=== PATIENT | male | born 1940 | race Hispanic/Latino ===

== ENCOUNTER 2017-02-18 11:22 | Emergency (ER) | payer MEDICARE ==
--- NOTE | 2017-02-18 12:10 | XRay Report ---
AP CHEST: HISTORY: chest pain No comparison. Previous CABG changes are noted. AP view of the chest demonstrates a normal mediastinal and cardiac contour with clear lungs and normal bony and soft tissue structures. IMPRESSION: No acute cardiopulmonary process.
[2017-02-18 12:31] LABS: Basophils % (Auto) 0.9 % (0.0-1.8); Eosinophils % (Auto) 0.8 % (0.0-4.3); Hematocrit 42.6 % (35.5-45.6); Hemoglobin 14.4 gm/dl (11.8-15.2); Mean Corpuscular HGB Conc 34 % (32-34); Mean Corpuscular Hemoglobin 31 pg (28-32); Mean Corpuscular Volume 92 fl (84-94); Platelet Count 185 K/mm3 (140-440); Red Blood Count 4.66 M/mm3 (3.65-5.03); Red Cell Distribution Width 13.3 % (13.2-15.2); White Blood Count 6.3 K/mm3 (4.5-11.0)
[2017-02-18 12:47] LABS: Bilirubin,Urine NEG (Negative)
[2017-02-18 12:48] LABS: Blood,Urine NEG (Negative); Ketones,Urine NEG (Negative); Leukocyte Esterase,Urine NEG (Negative); Nitrite,Urine NEG (Negative); Protein,Urine <15 mg/dL mg/dL (Negative); Urobilinogen,Urine < 2.0 mg/dL (<2.0)
[2017-02-18] MEDS ORDERED: APRESOLINE IV ONE (12:51)
[2017-02-18] MEDS ORDERED: NITROSTAT SL PRN (12:51)
--- NOTE | 2017-02-18 12:52 | Emergency Department Report ---
ED General Adult HPI - General Chief complaint: Chest Pain Stated complaint: NAUSEA Time Seen by Provider: 02/18/17 12:40 Source: patient, EMS (ems notes not available at time of chart dictation), RN notes reviewed Mode of arrival: Stretcher Limitations: No Limitations - History of Present Illness Initial comments: This is a 76-year-old male. He is previously unknown to me. Primary care Dr.: Dr. Diaz [employer] Supervisor: Dr. Hedrick Past medical history: Hypertension, GERD, heart disease, status post bypass ( bypass in 2014, does not recall recent stress test or cardiac catheterization since bypass ) she was brought to the hospital by EMS complaining of burning chest pain. The chest pain is epigastric, subxiphoid. It does not radiate to the back, arms or neck. There is mild nausea and vomiting, there is no hematemesis, there is no bright red blood per rectum. There is no posterior leg pain. There is no posterior leg swelling. Patient does complain incidentally burning pain in the feet. Patient reports that his pain improves when he lays in a particular position. He reports compliance with his antiplatelet medications. -: Gradual Location: chest Quality: aching Consistency: intermittent Improves with: rest, other (position) Worsens with: other (position) Associated Symptoms: chest pain, nausea/vomiting - Related Data Home Medications Medication Instructions Recorded Confirmed Last Taken Aspirin [Adult Low Dose Aspirin EC] 81 mg PO DAILY 02/18/17 02/18/17 02/17/17 Clopidogrel Bisulfate [Plavix] 75 mg PO DAILY 02/18/17 02/18/17 02/17/17 Famotidine [Pepcid] 20 mg PO QHS 02/18/17 02/18/17 02/17/17 Fenofibrate [Lofibra] 160 mg PO QDAY 02/18/17 02/18/17 02/17/17 Ibuprofen [Motrin] 800 mg PO Q8HR PRN 02/18/17 02/18/17 Unknown Metoclopramide HCl [Reglan TAB] 5 mg PO DAILY 02/18/17 02/18/17 02/17/17 Ondansetron [Zofran TAB] 8 mg PO Q8HR PRN 02/18/17 02/18/17 02/17/17 Pantoprazole [Protonix] 40 mg PO QDAY 02/18/17 02/18/17 02/17/17 Promethazine [Phenergan TAB] 12.5 mg PO QHS 02/18/17 02/18/17 02/17/17 Valsartan [Diovan] 160 mg PO QDAY 02/18/17 02/18/17 02/17/17 amLODIPine [Norvasc] 5 mg PO DAILY 02/18/17 02/18/17 02/18/17 clonazePAM [ Klonopin] 0.5 mg PO BID PRN 02/18/17 02/18/17 02/17/17 traMADol [Ultram 50 MG tab] 50 mg PO TID PRN 02/18/17 02/18/17 Unknown Allergies Allergy/AdvReac Type Severity Reaction Status Date / Time No Known Allergies Allergy Unverified 02/18/17 11:44 ED Review of Systems ROS: Stated complaint: NAUSEA Other details as noted in HPI ED Past Medical Hx - Past Medical History Previous Medical History?: Yes Hx Hypertension: Yes Hx Heart Attack/AMI: Yes Hx GERD: Yes - Surgical History Past Surgical History?: Yes Hx Open Heart Surgery: Yes (quadriple bypass 2014) - Social History Smoking Status: Never Smoker Substance Use Type: None - Medications Home Medications: Home Medications Medication Instructions Recorded Confirmed Last Taken Type Aspirin [Adult Low Dose Aspirin EC] 81 mg PO DAILY 02/18/17 02/18/17 02/17/17 History Clopidogrel Bisulfate [Plavix] 75 mg PO DAILY 02/18/17 02/18/17 02/17/17 History Famotidine [Pepcid] 20 mg PO QHS 02/18/17 02/18/17 02/17/17 History Fenofibrate [Lofibra] 160 mg PO QDAY 02/18/17 02/18/17 02/17/17 History Ibuprofen [Motrin] 800 mg PO Q8HR PRN 02/18/17 02/18/17 Unknown History Metoclopramide HCl [Reglan TAB] 5 mg PO DAILY 02/18/17 02/18/17 02/17/17 History Ondansetron [Zofran TAB] 8 mg PO Q8HR PRN 02/18/17 02/18/17 02/17/17 History Pantoprazole [Protonix] 40 mg PO QDAY 02/18/17 02/18/17 02/17/17 History Promethazine [Phenergan TAB] 12.5 mg PO QHS 02/18/17 02/18/17 02/17/17 History Valsartan [Diovan] 160 mg PO QDAY 02/18/17 02/18/17 02/17/17 History amLODIPine [Norvasc] 5 mg PO DAILY 02/18/17 02/18/17 02/18/17 History clonazePAM [ Klonopin] 0.5 mg PO BID PRN 02/18/17 02/18/17 02/17/17 History traMADol [Ultram 50 MG tab] 50 mg PO TID PRN 02/18/17 02/18/17 Unknown History ED Physical Exam - General Limitations: No Limitations General appearance: alert, in no apparent distress - Head Head exam: Present: atraumatic, normocephalic - Eye Eye exam: Present: normal appearance, EOMI. Absent: nystagmus - ENT ENT exam: Present: normal exam, normal orophraynx, mucous membranes moist, normal external ear exam - Neck Neck exam: Present: normal inspection, full ROM. Absent: tenderness, meningismus - Respiratory Respiratory exam: Present: normal lung sounds bilaterally. Absent: respiratory distress, wheezes, rales, rhonchi, stridor, chest wall tenderness, accessory muscle use, decreased breath sounds, prolonged expiratory - Cardiovascular Cardiovascular Exam: Present: regular rate, normal rhythm, normal heart sounds. Absent: bradycardia, tachycardia, irregular rhythm, systolic murmur, diastolic murmur, rubs, gallop - GI/Abdominal GI/Abdominal exam: Present: soft, normal bowel sounds. Absent: distended, tenderness, guarding, rebound, rigid, pulsatile mass - Rectal Rectal exam: Present: deferred - Extremities Exam Extremities exam: Present: normal inspection, full ROM, normal capillary refill. Absent: tenderness, pedal edema, joint swelling, calf tenderness - Back Exam Back exam: Present: normal inspection, full ROM. Absent: tenderness, CVA tenderness (R), CVA tenderness (L), muscle spasm, paraspinal tenderness, vertebral tenderness - Neurological Exam Neurological exam: Present: alert, oriented X3, other (Extraocular movements intact. Tongue midline. No facial droop. Facial sensation intact to light touch in the V1, V2, V3 distribution bilaterally. 5 and 5 strength in 4 extremities.. Sensation is intact to light touch in 4 extremities.). Absent: motor sensory deficit - Psychiatric Psychiatric exam: Present: normal affect, normal mood - Skin Skin exam: Present: warm, dry, intact, normal color. Absent: rash ED Course Vital Signs 02/18/17 02/18/17 02/18/17 11:35 13:23 13:35 Temperature 98.7 F Pulse Rate 69 59 L 69 Respiratory 14 16 15 Rate Blood Pressure 196/63 Blood Pressure 196/63 190/85 157/76 [Left] O2 Sat by Pulse 100 100 100 Oximetry - Reevaluation(s) Reevaluation #1: 02/18/17 12:59 Differential diagnosis: Hypertensive urgency, GERD, reflux, acute coronary syndrome, pneumonia Assessment and plan: 76-year-old male with extensive cardiac history, with concerning chest pain. He is afebrile with hypertension. I think aortic disease is very unlikely, a chest x-ray demonstrates unremarkable mediastinum, the patient has equal pulses in 4 extremities. He will be treated symptomatically. I will discuss with his private land resource specialist to determine further management. 02/18/17 14:07 Reevaluation #2: 02/18/17 13:00 No pulmonary embolus or DVT risk factors, low risk by well's criteria, saturating well, no respiratory complaint at this time. Reevaluation #3: 02/18/17 14:07 Additional history is obtained from family and from the nurse practitioner, Ms. Nelsy Arango. As per family's verbal report to me, the patient has been quite anxious and upset ever since his . They report that he chronically wakes up in the morning with nonspecific discomfort, anxiety, chest burning and stomach burning. The symptoms have been going on for weeks to months. Family has a strong suspicion for anxiety. in addition, the patient has been seen and evaluated by cardiology independently, indicated the patient had a negative stress test 2015, and the cardiology team indicates that from their perspective they did not feel the patient requires admission for acute coronary syndrome or stratification. This case was specifically discussed with land resource specialist, Dr. Hedrikc. In addition, the patient was supposed to follow-up with a land resource specialist today, and did not follow-up. Cardiology wants patient to follow-up next week. Given that patient has been having symptoms for weeks to months, has had multiple negative troponins, has reliable family, there appears to be an emotive component, and that his EKGs are unremarkable/unchanged 2 I think it would be reasonable to discharge this patient. Reevaluation #4: 02/18/17 15:32 Patient has been observed in the ER for a prolonged period of time. His vital signs are improved. His anxiety is improved. Troponins negative 2. He is closely arranged outpatient cardiology follow-up. He will be discharged. Family in agreement with plan. - Consultations Consultation #1: 02/18/17 13:18 This is discussed with cardiology nurse practitioner, Kevin arango, who will follow as a consult ED Medical Decision Making - Lab Data Result diagrams: 02/18/17 12:20 02/18/17 12:20 Vital Signs 02/18/17 11:35 Temperature 98.7 F Pulse Rate 69 Respiratory 14 Rate Blood Pressure 196/63 Blood Pressure 196/63 [Left] O2 Sat by Pulse 100 Oximetry Lab Results 02/18/17 02/18/17 Range/Units 12:05 12:20 WBC 6.3 (4.5-11.0) K/mm3 RBC 4.66 (3.65-5.03) M/mm3 Hgb 14.4 (11.8-15.2) gm/dl Hct 42.6 (35.5-45.6) % MCV 92 (84-94) fl MCH 31 (28-32) pg MCHC 34 (32-34) % RDW 13.3 (13.2-15.2) % Plt Count 185 (140-440) K/mm3 Lymph % (Auto) 17.6 (13.4-35.0) % [place] % (Auto) 7.3 (0.0-7.3) % Eos % (Auto) 0.8 (0.0-4.3) % Baso % (Auto) 0.9 (0.0-1.8) % Lymph # 1.1 L (1.2-5.4) K/mm3 [place] # 0.5 (0.0-0.8) K/mm3 Eos # 0.1 (0.0-0.4) K/mm3 Baso # 0.1 (0.0-0.1) K/mm3 Seg Neutrophils % 73.4 H (40.0-70.0) % Seg Neutrophils # 4.6 (1.8-7.7) K/mm3 Urine Bilirubin Neg (Negative) Urine RBC (Auto) 3.0 (0.0-6.0) /HPF - EKG Data When compared to previous EKG there are: previous EKG unavailable 02/18/17 12:58 EKG demonstrates normal sinus, 70 beats per minute, normal axis, normal intervals, nonspecific ST abnormality, not morphologically consistent with STEMI. EKG #2: Normal sinus, 83 bpm, left ventricular hypertrophy, morphologically consistent with STEMI, unchanged from prior EKG. 02/18/17 14:10 - Radiology Data Radiology results: report reviewed, image reviewed interpreted by me: X-ray the chest was negative for acute disease, patient is status post median sternotomy Critical care attestation.: If time is entered above; I have spent that time in minutes in the direct care of this critically ill patient, excluding procedure time. ED Disposition Clinical Impression: Epigastric burning sensation Disposition: DISCHARGED TO HOME OR SELFCARE Is pt being admited?: No Does the pt Need Aspirin: No Condition: Stable Instructions: Chest Pain (ED) Additional Instructions: Continue current outpatient medications. Follow-up with your land resource specialist,february, at 145, and the following office and location: [place] [address] Hours: Wednesday 8:30AM 5:00PM Return to the ER right away with new pain, worsened pain, migration of pain, fevers or chills, intractable nausea or vomiting, inability to tolerate liquid feeds. Referrals: PRIMARY CARE, [Primary Care Provider] - 3-5 Days JULIO CESAR HEDRICK MD [Staff Physician] - 3-5 Days
[2017-02-18] MEDS ORDERED: PEPCID IV ONE (13:00)
[2017-02-18] MEDS ORDERED: ALUM-MAG HYDROX-SIMETH 200-200-20MG/5ML PO ONE (13:00)
[2017-02-18] MEDS ORDERED: BABY ASPIRIN PO ONE (13:01)
--- NOTE | 2017-02-18 13:08 | Admit Criteria Form ---
Admission Criteria Documentation: HYPERTENSION Clinical Indications for Admission to Inpatient Care ( Place "X" for any and all applicable criteria): Admission is indicated for ANY ONE of the following(1)(2)(3)(4): [ ]I. Hypertensive emergency, with evidence of acute and progressing target organ disease as indicated by ANY ONE of the following: [ ]a) Hypertensive encephalopathy (eg, confusion, altered mental status) [ ]b) Cerebral infarction [ ]c) Intracranial hemorrhage [ ]d) Myocardial ischemia or infarction [ ]e) Pulmonary edema [ ]f) Aortic dissection [ ]g) Seizure [ ]h) Acute renal insufficiency [ ]i) Papilledema [ ]j) Microangiopathic hemolytic anemia [ ]II. Adrenergic crisis (eg, severe hypertension due to pheochromocytoma crisis, cocaine or amphetamine intoxication, or clonidine withdrawal) [ ]III. Severe hypertension (SBP greater than 180 mmHg or DBP greater than 110 mmHg or greater than the 95th percentile for age, gender, and height in pediatric patients) that cannot be controlled (eg, to SBP less than 160 mmHg and DBP less than 100 mmHg in adults) by treatment with oral medication in emergency department or observation care Extended stay beyond goal length of stay may be needed for(11)(12)(13): [ ]a) Persistent hypertensive encephalopathy [ ]b) Continuation of pulmonary edema [ ]c) Recurring or persistent severe hypertension [ ]d) Target organ damage (eg, angina, stroke, aortic dissection) [ ]e) Associated renal insufficiency The original [facility] content created by [employer] has been revised. The portions of the content which have been revised are identified through the use of italic text or in bold, and [facility] has neither reviewed nor approved the modified material. All other unmodified content is copyright [facility]. Please see references footnoted in the original [facility] edition 2016
[2017-02-18 13:20] LABS: INR 0.98 (0.87-1.13)
[2017-02-18 13:28] LABS: Creatine Kinase MB 3.2 ng/mL (0.0-4.0)
[2017-02-18 13:30] LABS: Alanine Aminotransferase 16 units/L (7-56); Albumin 4.5 g/dL (3.9-5); Alkaline Phosphatase 43 units/L (35-129); Anion Gap 22 mmol/L; Bilirubin,Total 0.6 mg/dL (0.1-1.2); Blood Urea Nitrogen 28 mg/dL (9-20); Calcium 9.5 mg/dL (8.4-10.2); Carbon Dioxide 21 mmol/L (22-30); Chloride 100.7 mmol/L (98-107); Creatine Kinase 72 units/L (55-170); Glucose 97 mg/dL (75-100); Potassium 4.4 mmol/L (3.6-5.0); Sodium 139 mmol/L (137-145); Total Protein 6.8 g/dL (6.3-8.2)
--- NOTE | 2017-02-18 13:35 | Consultation ---
History of Present Illness Consult date: 02/18/17 Requesting physician: MIRIAM CHRISTIANSON Consult reason: chest pain History of present illness: The patient is a 76YO male with a past medical history significant for CAD, s/p CABG (05/2014), HTN, HLP, cervical arthritis, lumbar disc disease, GERD, and anxiety. He is followed in our office by Dr. Ocasio. He presented with c/o substernal and epigastric pain x several days [employer]. Pt also reports BLE weakness and tingling (chronic), chronic nausea, intermittent substernal and epigastric burning, and intermittent SOB (particularly first thing in the AM when waking up ). He reports his epigastric and substernal discomfort as an intermittent, nonexertional, nonradiating burning pain that was a little worse that his baseline yesterday. He denies any palpitations, vomiting, diaphoresis, dizziness , or syncope. He reports that his two years ago and since her , he has been experiencing anxiety and depression and has generally not felt well. Pt is very tearful on examination. He was scheduled to be seen in our office today. Echo 03/2016 showed EF 40 - 45%, impaired relaxation, moderate MR. [employer] MPI stress test 04/2016 was negative for ischemia, normal LV systolic performance. Past History Past Medical History: CAD, hypertension, hyperlipidemia Past Surgical History: CABG Social history: denies: smoking, alcohol abuse, prescription drug abuse Medications and Allergies Allergies Allergy/AdvReac Type Severity Reaction Status Date / Time No Known Allergies Allergy Unverified 02/18/17 11:44 Home Medications Medication Instructions Recorded Confirmed Last Taken Type Aspirin [Adult Low Dose Aspirin EC] 81 mg PO DAILY 02/18/17 02/18/17 02/17/17 History Clopidogrel Bisulfate [Plavix] 75 mg PO DAILY 02/18/17 02/18/17 02/17/17 History Famotidine [Pepcid] 20 mg PO QHS 02/18/17 02/18/17 02/17/17 History Fenofibrate [Lofibra] 160 mg PO QDAY 02/18/17 02/18/17 02/17/17 History Ibuprofen [Motrin] 800 mg PO Q8HR PRN 02/18/17 02/18/17 Unknown History Metoclopramide HCl [Reglan TAB] 5 mg PO DAILY 02/18/17 02/18/17 02/17/17 History Ondansetron [Zofran TAB] 8 mg PO Q8HR PRN 02/18/17 02/18/17 02/17/17 History Pantoprazole [Protonix] 40 mg PO QDAY 02/18/17 02/18/17 02/17/17 History Promethazine [Phenergan TAB] 12.5 mg PO QHS 02/18/17 02/18/17 02/17/17 History Valsartan [Diovan] 160 mg PO QDAY 02/18/17 02/18/17 02/17/17 History amLODIPine [Norvasc] 5 mg PO DAILY 02/18/17 02/18/17 02/18/17 History clonazePAM [ Klonopin] 0.5 mg PO BID PRN 02/18/17 02/18/17 02/17/17 History traMADol [Ultram 50 MG tab] 50 mg PO TID PRN 02/18/17 02/18/17 Unknown History Active Meds: Active Medications Nitroglycerin (Nitrostat) 0.4 mg SL .Q5MIN PRN PRN Reason: Chest Pain Review of Systems Constitutional: no weight loss, no weight gain, no fever, no chills, no sweats Ears, nose, mouth and throat: no ear pain, no nose pain, no sinus pressure, no sinus pain Cardiovascular: chest pain, shortness of breath, no orthopnea, no palpitations, no rapid/irregular heart beat, no edema, no syncope, no lightheadedness, no dyspnea on exertion, no leg edema Respiratory: shortness of breath, no cough, no dyspnea on exertion, no congestion, no wheezing, no pain Gastrointestinal: nausea, no vomiting, no diarrhea, no constipation, no change in bowel habits Genitourinary Male: no dysuria, no hematuria, no flank pain, no discharge, no urinary frequency, no urinary hesitancy Musculoskeletal: leg numbness/tingling, no neck stiffness, no neck pain, no shooting arm pain, no arm numbness/tingling, no low back pain, no shooting leg pain, no redness of joints Integumentary: no rash, no pruritis, no redness, no sores, no wounds Neurological: no head injury, no paralysis, no seizures, no syncope, no tremors , no lack of coordination Psychiatric: anxiety, depression, hopelessness Endocrine: no cold intolerance, no heat intolerance Hematologic/Lymphatic: no easy bruising, no easy bleeding, no lymphadenopathy Allergic/Immunologic: no urticaria, no wheezing, no persistent infections Physical Examination Last Vital Signs Temp 98.7 F 02/18/17 11:35 Pulse 69 02/18/17 13:35 Resp 15 02/18/17 13:35 BP 157/76 02/18/17 13:35 Pulse Ox 100 02/18/17 13:35 General appearance: no acute distress HEENT: Positive: PERRL, Normocephaly, Mucus Membranes Moist Neck: Positive: neck supple, trachea midline Cardiac: Positive: Reg Rate and Rhythm, S1/S2, Systolic Murmur Lungs: Positive: Normal Exam, clear to auscultation, Normal Breath Sounds, No Wheeze, Rales, Rhonchi Neuro: Positive: Grossly Intact, Cranial Nerve 2-12 Intact Abdomen: Positive: Unremarkable, Soft, Active Bowel Sounds. Negative: Tender Skin: Positive: Clear. Negative: Rash, Wound Musculoskeletal: No Fluid Collection, No Pain, Normal Range of Motion Extremities: Present: normal, upper extr. pulses, lower extr. pulses. Absent: edema Results 02/18/17 12:20 02/18/17 12:20 Cardiac Enzymes 02/18/17 Range/Units 12:20 AST 18 (5-40) units/L CK-MB (CK-2) 3.2 (0.0-4.0) ng/mL Coagulation 02/18/17 Range/Units 13:06 PT 12.9 (12.2-14.9) Sec. INR 0.98 (0.87-1.13) CBC 02/18/17 Range/Units 12:20 WBC 6.3 (4.5-11.0) K/mm3 RBC 4.66 (3.65-5.03) M/mm3 Hgb 14.4 (11.8-15.2) gm/dl Hct 42.6 (35.5-45.6) % Plt Count 185 (140-440) K/mm3 Lymph # 1.1 L (1.2-5.4) K/mm3 Clinch # 0.5 (0.0-0.8) K/mm3 Eos # 0.1 (0.0-0.4) K/mm3 Baso # 0.1 (0.0-0.1) K/mm3 Comprehensive Metabolic Panel 02/18/17 Range/Units 12:20 Sodium 139 (137-145) mmol/L Potassium 4.4 (3.6-5.0) mmol/L Chloride 100.7 (98-107) mmol/L Carbon Dioxide 21 L (22-30) mmol/L BUN 28 H (9-20) mg/dL Creatinine 1.6 H (0.8-1.5) mg/dL Glucose 97 (75-100) mg/dL Calcium 9.5 (8.4-10.2) mg/dL AST 18 (5-40) units/L ALT 16 (7-56) units/L Alkaline Phosphatase 43 (35-129) units/L Total Protein 6.8 (6.3-8.2) g/dL Albumin 4.5 (3.9-5) g/dL - Imaging and Cardiology Echo: report reviewed Cardiac cath: report reviewed EKG: report reviewed, image reviewed EKG interpretations - Telemetry EKG Rhythm: Sinus Rhythm - EKG Sinus rhythms and dysrhythmias: sinus rhythm Repolarization changes or abnormalities: nonspecific abnormality, ST segment, and/or T wave Assessment and Plan Assessment: Chest pain, atypical / epigastric pain - ECG with NAF, Marciano negative for AMI HTN HLP CAD, s/p CABG GERD BLE weakness and tingling / cervical arthritis / lumbar disc disease Anxiety / depression Plan: Currently stable cardiac status. ACS ruled out. Discomfort does not appear to be cardiac in etiology. Pt may discharge home from cardiology standpoint. No new cardiology recommendations at this time. Follow up in our [place] office with Dr. Haque on 02/26/2017 @ 1:45PM. Assessment and plan reviewed with pt, pt's son, and [id number] at bedside. The patient has been seen in conjunction with Dr. Ocasio who agrees with the assessment and plan of care.
[2017-02-18 16:01] VITALS: BP 130/78
== END 2017-02-18 16:01 | disposition home or self-care (01) ==
LOC: ED 11:22
DX: R20.8 Other disturbances of skin sensation (principal); R07.89 Other chest pain; R11.2 Nausea with vomiting, unspecified; I10 Essential (primary) hypertension; I25.2 Old myocardial infarction; K21.9 Gastro-esophageal reflux disease without esophagitis; Z79.82 Long term (current) use of aspirin
CPT/HCPCS: 36415; 71010; 80053; 81001; 82550; 82553; 84484; 85025; 85610; 93005; 93010; 96374; 96375; 99285; J0360

== ENCOUNTER 2017-09-30 08:15 | Inpatient (IN) | payer MEDICARE ==
[2017-09-30 09:29] LABS: Hematocrit 46.4 % (35.5-45.6); Hemoglobin 15.6 gm/dl (11.8-15.2); Mean Corpuscular HGB Conc 34 % (32-34); Mean Corpuscular Hemoglobin 31 pg (28-32); Mean Corpuscular Volume 93 fl (84-94); Red Blood Count 4.99 M/mm3 (3.65-5.03); Red Cell Distribution Width 13.3 % (13.2-15.2)
[2017-09-30 09:41] LABS: Anion Gap 20 mmol/L; BUN/Creatinine Ratio 17; Blood Urea Nitrogen 25 mg/dL (9-20); Calcium 9.5 mg/dL (8.4-10.2); Carbon Dioxide 21 mmol/L (22-30); Chloride 102.3 mmol/L (98-107); Glucose 105 mg/dL (75-100); INR 1.02 (0.87-1.13); Partial Thromboplastin Time 23.2 Sec. (24.2-36.6); Potassium 4.7 mmol/L (3.6-5.0); Sodium 139 mmol/L (137-145)
[2017-09-30 11:16] LABS: Basophils % (Manual) 0 % (0.0-1.8); Blastocytes % (Manual) 0 %
[2017-09-30 11:17] LABS: Diff Status Complete; RBC Morphology Normal
[2017-09-30 11:24] LABS: Platelet Count 168 K/mm3 (140-440)
--- NOTE | 2017-09-30 14:39 | XRay Report ---
CHEST 2 VIEWS INDICATION: Shortness of breath, difficulty breathing. COMPARISON: 02/18/2017 FINDINGS: PA and lateral chest radiographs again demonstrate normal cardiomediastinal silhouette, post CABG changes and clear lungs. Intact bones. CONCLUSION: No acute disease, stable. Thank you for the opportunity to participate in this patient's care.
[2017-09-30 17:41] LABS: Bilirubin,Urine NEG (Negative); Blood,Urine SM (Negative); Ketones,Urine NEG (Negative); Leukocyte Esterase,Urine NEG (Negative); Mucus,Urine FEW /HPF; Nitrite,Urine NEG (Negative); Protein,Urine <15 mg/dL mg/dL (Negative); RBC,Urine < 1.0 /HPF (0.0-6.0); Urobilinogen,Urine < 2.0 mg/dL (<2.0)
[2017-09-30] MEDS ORDERED: DIOVAN PO SCH (18:00)
[2017-09-30] MEDS: NORVASC PO SCH (18:27)
[2017-09-30] MEDS ORDERED: NITRO-BID 2% TP ONE (18:39)
[2017-09-30] MEDS ORDERED: ASPIRIN PO ONE (18:39)
[2017-09-30] MEDS ORDERED: ZOFRAN IV PRN ×2 (18:40→21:48)
[2017-09-30] MEDS ORDERED: MORPHINE IV PRN ×2 (18:40→21:48)
--- NOTE | 2017-09-30 18:45 | Emergency Department Report ---
HPI - General Chief Complaint: Chest Pain Time Seen by Provider: 09/30/17 17:32 - HPI HPI: Room 7 The patient is a 76-year-old male presenting with a chief complaint of chest discomfort. The patient states for the past 3 days she's had intermittent tightness in his chest associated with hot and cold flashes, diaphoresis and a dry throat. Patient does admit he has been "hard to breathe" with his chest tightness. Patient denies nausea/vomiting. Patient denies cough or fever. Patient complains of some throat discomfort when swallowing. The patient states he's had a stress test sometime in 2016 but his last cardiac catheterization occurred in 2013. Location: Chest, see above Duration: Intermittent 3 days Quality: Tightness Severity: Currently 0/10 Modifying factors: [see above] Context: [see above] Mode of transportation: [not driving] ED Past Medical Hx - Past Medical History Hx Hypertension: Yes Hx Heart Attack/AMI: Yes Hx GERD: Yes Additional medical history: Hypercholesterolemia - Surgical History Hx Open Heart Surgery: Yes (quadriple bypass 2014) - Family History Family history: no significant - Social History Smoking Status: Former Smoker (none 30 years) Substance Use Type: None - Medications Home Medications: Home Medications Medication Instructions Recorded Confirmed Last Taken Type Aspirin [Adult Low Dose Aspirin EC] 81 mg PO DAILY 02/18/17 09/30/17 09/29/17 History Clopidogrel Bisulfate [Plavix] 75 mg PO DAILY 02/18/17 09/30/17 09/29/17 History Famotidine [Pepcid] 20 mg PO QHS 02/18/17 09/30/17 09/29/17 History Fenofibrate [Lofibra] 160 mg PO QDAY 02/18/17 09/30/17 09/29/17 History Ibuprofen [Motrin] 800 mg PO Q8HR PRN 02/18/17 09/30/17 09/29/17 History Pantoprazole [Protonix] 40 mg PO QDAY 02/18/17 09/30/17 09/29/17 History Valsartan [Diovan] 160 mg PO QDAY 02/18/17 09/30/17 09/29/17 History amLODIPine [Norvasc] 5 mg PO DAILY 02/18/17 09/30/17 09/29/17 History clonazePAM [ Klonopin] 0.5 mg PO BID PRN 02/18/17 09/30/17 09/29/17 History Carbidopa/Levodopa 25-100 [Sinemet] 1 each PO BID 09/30/17 09/30/17 09/29/17 History Ergocalciferol [Vitamin D2] 1 cap PO QWEEK 09/30/17 09/30/17 09/29/17 History Finasteride [Proscar] 5 mg PO QDAY 09/30/17 09/30/17 09/29/17 History Memantine [Namenda] 5 mg PO BID 09/30/17 09/30/17 09/29/17 History Pravastatin Sodium [Pravachol] 20 mg PO DAILY 09/30/17 09/30/17 09/29/17 History Sertraline [Zoloft] 25 mg PO QDAY 09/30/17 09/30/17 09/29/17 History ED Review of Systems ROS: Stated complaint: ABNORMAL EKG, CHEST PAIN Other details as noted in HPI Constitutional: diaphoresis. denies: fever ENT: throat pain, other (dry throat) Respiratory: shortness of breath Cardiovascular: chest pain Gastrointestinal: denies: nausea, vomiting Physical Exam - Physical Exam Vital Signs: Vital Signs 09/30/17 09/30/17 09/30/17 08:34 10:43 10:47 Temperature 97.4 F L 97.2 F L 97.2 F L Pulse Rate 52 L 62 57 L Respiratory 20 14 18 Rate Blood Pressure 190/90 167/81 Blood Pressure [Left] Blood Pressure 161/81 [Right] O2 Sat by Pulse 99 100 100 Oximetry 09/30/17 09/30/17 09/30/17 14:46 15:43 18:27 Temperature 97.9 F 98 F Pulse Rate 55 L 61 Respiratory 13 Rate Blood Pressure 163/60 Blood Pressure 199/72 [Left] Blood Pressure [Right] O2 Sat by Pulse Oximetry Physical Exam: GENERAL: The patient is well-developed well-nourished male lying on stretcher not appearing to be in acute distress. [] HEENT: Normocephalic. Atraumatic. Extraocular motions are intact. Oropharynx clear NECK: Supple. Trachea midline CHEST/LUNGS: Clear to auscultation. There is no respiratory distress noted. HEART/CARDIOVASCULAR: Regular. There is no tachycardia. There is no gallop rub or murmur. ABDOMEN: Abdomen is soft, nontender. Patient has normal bowel sounds. There is no abdominal distention. SKIN: There is no rash. There is no diaphoresis. NEURO: The patient is awake, alert, and oriented. The patient is cooperative. The patient has normal speech MUSCULOSKELETAL: There is no evidence of acute injury. ED Course Vital Signs 09/30/17 09/30/17 09/30/17 08:34 10:43 10:47 Temperature 97.4 F L 97.2 F L 97.2 F L Pulse Rate 52 L 62 57 L Respiratory 20 14 18 Rate Blood Pressure 190/90 167/81 Blood Pressure [Left] Blood Pressure 161/81 [Right] O2 Sat by Pulse 99 100 100 Oximetry 09/30/17 09/30/17 09/30/17 14:46 15:43 18:27 Temperature 97.9 F 98 F Pulse Rate 55 L 61 Respiratory 13 Rate Blood Pressure 163/60 Blood Pressure 199/72 [Left] Blood Pressure [Right] O2 Sat by Pulse Oximetry ED Medical Decision Making - Lab Data Result diagrams: 09/30/17 08:56 09/30/17 08:56 Laboratory Tests 09/30/17 09/30/17 09/30/17 08:56 08:56 08:56 WBC 10.0 RBC 4.99 Hgb 15.6 H Hct 46.4 H MCV 93 MCH 31 MCHC 34 RDW 13.3 Plt Count 168 Add Manual Diff Complete Total Counted 100 Seg Neuts % (Manual) 81.0 H Band Neutrophils % 1.0 Lymphocytes % (Manual) 12.0 L Reactive Lymphs % (Man) 0 Monocytes % (Manual) 5.0 Eosinophils % (Manual) 1.0 Basophils % (Manual) 0 Metamyelocytes % 0 Myelocytes % 0 Promyelocytes % 0 Blast Cells % 0 Nucleated RBC % Not Reportable Seg Neutrophils # Man 0.0 L Band Neutrophils # 0.0 Lymphocytes # (Manual) 0.0 L Abs React Lymphs (Man) 0.0 Monocytes # (Manual) 0.0 Eosinophils # (Manual) 0.0 Basophils # (Manual) 0.0 Metamyelocytes # 0.0 Myelocytes # 0.0 Promyelocytes # 0.0 Blast Cells # 0.0 WBC Morphology Not Reportable Hypersegmented Neuts Not Reportable Hyposegmented Neuts Not Reportable Hypogranular Neuts Not Reportable Smudge Cells Not Reportable Toxic Granulation Not Reportable Toxic Vacuolation Not Reportable Dohle Bodies Not Reportable Pelger-Huet Anomaly Not Reportable Cristela Rods Not Reportable Platelet Estimate Not Reportable Clumped Platelets Not Reportable Plt Clumps, EDTA Not Reportable Large Platelets Not Reportable Giant Platelets Not Reportable Platelet Satelliting Not Reportable Plt Morphology Comment Not Reportable RBC Morphology Normal Dimorphic RBCs Not Reportable Polychromasia Not Reportable Hypochromasia Not Reportable Poikilocytosis Not Reportable Anisocytosis Not Reportable Microcytosis Not Reportable Macrocytosis Not Reportable Spherocytes Not Reportable Pappenheimer Bodies Not Reportable Sickle Cells Not Reportable Target Cells Not Reportable Tear Drop Cells Not Reportable Ovalocytes Not Reportable Helmet Cells Not Reportable Yao-[place] Bodies Not Reportable Peck Rings Not Reportable Jj Cells Not Reportable Bite Cells Not Reportable Crenated Cell Not Reportable Elliptocytes Not Reportable Acanthocytes (Spur) Not Reportable Rouleaux Not Reportable Hemoglobin C Crystals Not Reportable Schistocytes Not Reportable Malaria parasites Not Reportable Murali Bodies Not Reportable Hem Pathologist Commnt No PT 13.9 INR 1.02 APTT 23.2 L Sodium 139 Potassium 4.7 Chloride 102.3 Carbon Dioxide 21 L Anion Gap 20 BUN 25 H Creatinine 1.5 Estimated GFR 46 BUN/Creatinine Ratio 17 Glucose 105 H Lactic Acid Calcium 9.5 Troponin T < 0.010 Urine Color Urine Turbidity Urine pH Ur Specific [place] Urine Protein Urine Glucose (UA) Urine Ketones Urine Blood Urine Nitrite Urine Bilirubin Urine Urobilinogen Ur Leukocyte Esterase Urine WBC (Auto) Urine RBC (Auto) U Epithel Cells (Auto) Hyaline Casts Urine Mucus 09/30/17 09/30/17 09/30/17 11:48 14:40 15:26 WBC RBC Hgb Hct MCV MCH MCHC RDW Plt Count Add Manual Diff Total Counted Seg Neuts % (Manual) Band Neutrophils % Lymphocytes % (Manual) Reactive Lymphs % (Man) Monocytes % (Manual) Eosinophils % (Manual) Basophils % (Manual) Metamyelocytes % Myelocytes % Promyelocytes % Blast Cells % Nucleated RBC % Seg Neutrophils # Man Band Neutrophils # Lymphocytes # (Manual) Abs React Lymphs (Man) Monocytes # (Manual) Eosinophils # (Manual) Basophils # (Manual) Metamyelocytes # Myelocytes # Promyelocytes # Blast Cells # WBC Morphology Hypersegmented Neuts Hyposegmented Neuts Hypogranular Neuts Smudge Cells Toxic Granulation Toxic Vacuolation Dohle Bodies Pelger-Huet Anomaly Cristela Rods Platelet Estimate Clumped Platelets Plt Clumps, EDTA Large Platelets Giant Platelets Platelet Satelliting Plt Morphology Comment RBC Morphology Dimorphic RBCs Polychromasia Hypochromasia Poikilocytosis Anisocytosis Microcytosis Macrocytosis Spherocytes Pappenheimer Bodies Sickle Cells Target Cells Tear Drop Cells Ovalocytes Helmet Cells Yao-[place] Bodies Peck Rings Jj Cells Bite Cells Crenated Cell Elliptocytes Acanthocytes (Spur) Rouleaux Hemoglobin C Crystals Schistocytes Malaria parasites Murali Bodies Hem Pathologist Commnt PT INR APTT Sodium Potassium Chloride Carbon Dioxide Anion Gap BUN Creatinine Estimated GFR BUN/Creatinine Ratio Glucose Lactic Acid 1.50 Calcium Troponin T < 0.010 < 0.010 Urine Color Urine Turbidity Urine pH Ur Specific [place] Urine Protein Urine Glucose (UA) Urine Ketones Urine Blood Urine Nitrite Urine Bilirubin Urine Urobilinogen Ur Leukocyte Esterase Urine WBC (Auto) Urine RBC (Auto) U Epithel Cells (Auto) Hyaline Casts Urine Mucus 09/30/17 16:23 WBC RBC Hgb Hct MCV MCH MCHC RDW Plt Count Add Manual Diff Total Counted Seg Neuts % (Manual) Band Neutrophils % Lymphocytes % (Manual) Reactive Lymphs % (Man) Monocytes % (Manual) Eosinophils % (Manual) Basophils % (Manual) Metamyelocytes % Myelocytes % Promyelocytes % Blast Cells % Nucleated RBC % Seg Neutrophils # Man Band Neutrophils # Lymphocytes # (Manual) Abs React Lymphs (Man) Monocytes # (Manual) Eosinophils # (Manual) Basophils # (Manual) Metamyelocytes # Myelocytes # Promyelocytes # Blast Cells # WBC Morphology Hypersegmented Neuts Hyposegmented Neuts Hypogranular Neuts Smudge Cells Toxic Granulation Toxic Vacuolation Dohle Bodies Pelger-Huet Anomaly Cristela Rods Platelet Estimate Clumped Platelets Plt Clumps, EDTA Large Platelets Giant Platelets Platelet Satelliting Plt Morphology Comment RBC Morphology Dimorphic RBCs Polychromasia Hypochromasia Poikilocytosis Anisocytosis Microcytosis Macrocytosis Spherocytes Pappenheimer Bodies Sickle Cells Target Cells Tear Drop Cells Ovalocytes Helmet Cells Yao-[place] Bodies Peck Rings Jj Cells Bite Cells Crenated Cell Elliptocytes Acanthocytes (Spur) Rouleaux Hemoglobin C Crystals Schistocytes Malaria parasites Murali Bodies Hem Pathologist Commnt PT INR APTT Sodium Potassium Chloride Carbon Dioxide Anion Gap BUN Creatinine Estimated GFR BUN/Creatinine Ratio Glucose Lactic Acid Calcium Troponin T Urine Color Yellow Urine Turbidity Clear Urine pH 5.0 Ur Specific [place] 1.023 Urine Protein <15 mg/dl Urine Glucose (UA) Neg Urine Ketones Neg Urine Blood Sm Urine Nitrite Neg Urine Bilirubin Neg Urine Urobilinogen < 2.0 Ur Leukocyte Esterase Neg Urine WBC (Auto) 1.0 Urine RBC (Auto) < 1.0 U Epithel Cells (Auto) < 1.0 Hyaline Casts 4 Urine Mucus Few - EKG Data -: EKG Interpreted by Me EKG shows normal: sinus rhythm Rate: normal - EKG Data When compared to previous EKG there are: no significant change Interpretation: unchanged when compared t (02/18/2017), nonspecific ST-T wave sally (ST depressions laterally) - Radiology Data Radiology results: image reviewed (chest x-ray, lateral soft tissue neck x-ray) interpreted by me: Chest x-ray-no focal infiltrates, no pneumothorax Lateral soft tissue neck x-ray-no evidence of epiglottitis, no prevertebral swelling - Differential Diagnosis ACS, GERD, pericarditis, retropharyngeal abscess Critical care attestation.: If time is entered above; I have spent that time in minutes in the direct care of this critically ill patient, excluding procedure time. ED Disposition Clinical Impression: Chest tightness, Dry throat Disposition: 09 OP ADMIT IP TO THIS HOSP Is pt being admited?: Yes Does the pt Need Aspirin: Yes Condition: Fair Referrals: PRIMARY CARE, [Primary Care Provider] - 3-5 Days Time of Disposition: 18:47 (hospitalist paged (Dr Castañeda))
--- NOTE | 2017-09-30 20:34 | XRay Report ---
FINAL REPORT PROCEDURE: XR NECK SOFT TISSUE TECHNIQUE: Soft tissue neck radiographs, 2 views, including AP and lateral. CPT 88314 HISTORY: sore throat COMPARISON: No prior studies are available for comparison. FINDINGS: Bone mineralization: There is moderate degree anterior osteophyte formation at C4-5 and C6-7. Disc space narrowing is identified at C6-7 consistent with cervical spondylosis. Alignment: Normal. Soft tissues: Epiglottis and hypopharyngeal soft tissues normal. Foreign bodies: None. IMPRESSION: Moderate degree anterior osteophyte formation. Otherwise unremarkable study.
[2017-09-30] MEDS ORDERED: DULCOLAX PR PRN (21:48)
[2017-09-30] MEDS ORDERED: TYLENOL PO PRN (21:48)
[2017-09-30] MEDS ORDERED: MILK OF MAGNESIA PO PRN (21:48)
--- NOTE | 2017-09-30 21:48 | History and Physical Report ---
History of Present Illness Date of examination: 09/30/17 Date of admission: 09/30/17 Chief complaint: Difficulty breathing History of present illness: Patient is 76 yo with hypertension, CAD, s/p CABG, dementia. He has dementia and cannot give much of a detailed history . he presented with chest pain and shortness of breath. Chest pain is midsternal , 7/10. no radiation, not worse on exertion. Shortness of breath is present at rest, worse on exertion. He denies any nausea or vomiting or fever. In Emergency Departnment troponin level was normal. Patient will be admitted to rule out acute coronary syndrome and pulmonary embolism. Past History Past Medical History: acute [place], CAD (s/p CABG), GERD, hypertension, hyperlipidemia, other (Parkinsons) Past Surgical History: CABG Social history: lives with family, full code. denies: smoking, alcohol abuse Family history: no significant family history Medications and Allergies Allergies Allergy/AdvReac Type Severity Reaction Status Date / Time No Known Allergies Allergy Verified 09/30/17 08:34 Home Medications Medication Instructions Recorded Confirmed Last Taken Type Aspirin [Adult Low Dose Aspirin EC] 81 mg PO DAILY 02/18/17 09/30/17 09/29/17 History Clopidogrel Bisulfate [Plavix] 75 mg PO DAILY 02/18/17 09/30/17 09/29/17 History Famotidine [Pepcid] 20 mg PO QHS 02/18/17 09/30/17 09/29/17 History Fenofibrate [Lofibra] 160 mg PO QDAY 02/18/17 09/30/17 09/29/17 History Ibuprofen [Motrin] 800 mg PO Q8HR PRN 02/18/17 09/30/17 09/29/17 History Pantoprazole [Protonix] 40 mg PO QDAY 02/18/17 09/30/17 09/29/17 History Valsartan [Diovan] 160 mg PO QDAY 02/18/17 09/30/17 09/29/17 History amLODIPine [Norvasc] 5 mg PO DAILY 02/18/17 09/30/17 09/29/17 History clonazePAM [ Klonopin] 0.5 mg PO BID PRN 02/18/17 09/30/17 09/29/17 History Carbidopa/Levodopa 25-100 [Sinemet] 1 each PO BID 09/30/17 09/30/17 09/29/17 History Ergocalciferol [Vitamin D2] 1 cap PO QWEEK 09/30/17 09/30/17 09/29/17 History Finasteride [Proscar] 5 mg PO QDAY 09/30/17 09/30/17 09/29/17 History Memantine [Namenda] 5 mg PO BID 09/30/17 09/30/17 09/29/17 History Pravastatin Sodium [Pravachol] 20 mg PO DAILY 09/30/17 09/30/17 09/29/17 History Sertraline [Zoloft] 25 mg PO QDAY 09/30/17 09/30/17 09/29/17 History Active Meds: Active Medications Amlodipine Besylate (Norvasc) 5 mg PO DAILY [facility] Last Admin: 09/30/17 18:27 Dose: 5 mg Morphine Sulfate (Morphine) 6 mg IV ONCE PRN PRN Reason: Pain Ondansetron HCl (Zofran) 8 mg IV ONCE PRN PRN Reason: Nausea Valsartan (Diovan) 160 mg PO QDAY [facility] Last Admin: 09/30/17 18:27 Dose: 160 mg Review of Systems All systems: negative (No fever, no headache,no abdominal pain. All other systems reviewed and are negative) Exam - Physical Exam Narrative exam: GEN APPEARANCE : Not in acute distress, lying in bed HEENT: Normocephalic, Atraumatic NECK : supple, no JVD LUNGS: clear to auscultation bilaterally, no rales, no wheeze HEART: S1 and S2 regular, no murmurs, rubs or gallop, ABD: Soft, non tender, non distended, normal bowel sounds EXT: No edema, no clubbing, no cyanosis NEURO: Awake,alert, moves all extremities, Psych:Normal mood - Constitutional Vitals: Temp Pulse Resp BP Pulse Ox 98 F 55 L 13 169/66 100 09/30/17 15:43 09/30/17 19:08 09/30/17 14:46 09/30/17 19:08 09/30/17 10:47 Results - Labs CBC & Chem 7: 09/30/17 08:56 09/30/17 08:56 Labs: Abnormal lab results 09/30/17 09/30/17 09/30/17 Range/Units 08:56 08:56 08:56 Hgb 15.6 H (11.8-15.2) gm/dl Hct 46.4 H (35.5-45.6) % Seg Neuts % (Manual) 81.0 H (40.0-70.0) % Lymphocytes % (Manual) 12.0 L (13.4-35.0) % Seg Neutrophils # Man 0.0 L (1.8-7.7) K/mm3 Lymphocytes # (Manual) 0.0 L (1.2-5.4) K/mm3 APTT 23.2 L (24.2-36.6) Sec. Carbon Dioxide 21 L (22-30) mmol/L BUN 25 H (9-20) mg/dL Glucose 105 H (75-100) mg/dL Assessment and Plan Chest pain and shortness of breath. To rule out acute coronary syndrome. He was given aspirin 325 mg by mouth in ED. Troponin level normal. 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 Cannot get details but as per ED Physician records, had a stress test this year. Will keep nothing by mouth for possible stress test in the morning - for cardiology to decide. Obtain d-dimer and if elevated will do a V/Q scan, to rule out pulmonary embolism. Coronary artery disease status post CABG. Acute kidney injury. His creatinine is 1.5, baseline unknown. Repeat BMP in the morning Throat discomfort. may follow with ENT as outpatient. Hypertension.BP stable. resume home meds. Will hold Diovan because of ERIN since baseline unknown. DVT prophylaxis with heparin Full CODE STATUS Dementia. Continue Diane Stout's d. On sinemet
[2017-09-30] MEDS ORDERED: PRAVACHOL PO SCH (22:00)
[2017-09-30] MEDS ORDERED: PEPCID PO SCH (22:00)
[2017-09-30] MEDS: HEPARIN SUB-Q SCH (23:11)
[2017-09-30] MEDS: NAMENDA PO SCH (23:11)
[2017-09-30] MEDS: SINEMET PO SCH (23:11)
--- NOTE | 2017-10-01 02:26 | Nuclear Medicine Report ---
FINAL REPORT EXAM: NM LUNG SCAN PERF/VENT HISTORY: SOB COMPARISON: None available. TECHNIQUE: 15.00 [id number] 5.00 MAA FINDINGS: Relatively homogeneous uptake of tracer on the ventilation and perfusion portions of the exam. No mismatched defect. IMPRESSION: Very low probability exam for pulmonary embolus.
--- NOTE | 2017-10-01 03:09 | XRay Report ---
FINAL REPORT EXAM: XR CHEST 1V AP HISTORY: SOB COMPARISON: None available. FINDINGS: Frontal view(s) of the chest obtained. Cardiac silhouette within normal limits. Prior median sternotomy. No gross consolidation or effusion. No pneumothorax. IMPRESSION: No grossly acute findings.
[2017-10-01 06:12] LABS: Basophils % (Auto) 1.2 % (0.0-1.8); Eosinophils % (Auto) 1.3 % (0.0-4.3); Hematocrit 39.2 % (35.5-45.6); Hemoglobin 13.3 gm/dl (11.8-15.2); Mean Corpuscular HGB Conc 34 % (32-34); Mean Corpuscular Hemoglobin 31 pg (28-32); Mean Corpuscular Volume 93 fl (84-94); Platelet Count 212 K/mm3 (140-440); Red Blood Count 4.23 M/mm3 (3.65-5.03); Red Cell Distribution Width 13.2 % (13.2-15.2); White Blood Count 8.3 K/mm3 (4.5-11.0)
[2017-10-01 06:34] LABS: Calcium 9.1 mg/dL (8.4-10.2); Chloride 103.8 mmol/L (98-107); Potassium 3.9 mmol/L (3.6-5.0)
[2017-10-01] MEDS ORDERED: IMDUR PO SCH (10:00)
[2017-10-01] MEDS ORDERED: PROSCAR PO SCH (10:00)
[2017-10-01] MEDS ORDERED: ZOLOFT PO SCH (10:00)
[2017-10-01] MEDS ORDERED: NON-FORMULARY (Fenofibrate [Lofibra] 160 MG) PO SCH (10:00)
[2017-10-01] MEDS ORDERED: HALFPRIN EC PO SCH (10:00)
[2017-10-01] MEDS ORDERED: TRICOR PO SCH (10:00)
[2017-10-01] MEDS ORDERED: PROTONIX PO SCH (10:00)
[2017-10-01] MEDS ORDERED: PLAVIX PO SCH (10:00)
--- NOTE | 2017-10-01 10:30 | Consultation ---
History of Present Illness Consult date: 10/01/17 Requesting physician: MIRIAM CARMICHAEL Consult reason: chest pain History of present illness: The patient is a 76YO male with a past medical history significant for CAD, s/p CABG (05/2014), HTN, HLP, cervical arthritis, lumbar disc disease, GERD, Parkinson's disease, dementia and anxiety. He is followed in our office by Dr. Ocasio. He presented with c/o chills, sweats, and nonexertional, nonradiating midsternal chest pressure intermittently since Wednesday. He provides no additional details. He denies any SOB, palpitations, vomiting, dizziness, or syncope. On evaluation, he reports that his symptoms have resolved and denies any current chest pain. He is requesting to be discharged home. Echo 03/2016 showed EF 40 - 45%, impaired relaxation, moderate MR. [employer] MPI stress test 04/2016 was negative for ischemia, normal LV systolic performance. Past History Past Medical History: acute [place], CAD (s/p CABG), GERD, hypertension, hyperlipidemia, other (Parkinsons) Past Surgical History: CABG Social history: lives with family, full code. denies: smoking, alcohol abuse Family history: no significant family history Medications and Allergies Allergies Allergy/AdvReac Type Severity Reaction Status Date / Time No Known Allergies Allergy Verified 09/30/17 08:34 Home Medications Medication Instructions Recorded Confirmed Last Taken Type Aspirin [Adult Low Dose Aspirin EC] 81 mg PO DAILY 02/18/17 09/30/17 09/29/17 History Clopidogrel Bisulfate [Plavix] 75 mg PO DAILY 02/18/17 09/30/17 09/29/17 History Famotidine [Pepcid] 20 mg PO QHS 02/18/17 09/30/17 09/29/17 History Fenofibrate [Lofibra] 160 mg PO QDAY 02/18/17 09/30/17 09/29/17 History Ibuprofen [Motrin] 800 mg PO Q8HR PRN 02/18/17 09/30/17 09/29/17 History Pantoprazole [Protonix] 40 mg PO QDAY 02/18/17 09/30/17 09/29/17 History Valsartan [Diovan] 160 mg PO QDAY 02/18/17 09/30/17 09/29/17 History amLODIPine [Norvasc] 5 mg PO DAILY 02/18/17 09/30/17 09/29/17 History clonazePAM [ Klonopin] 0.5 mg PO BID PRN 02/18/17 09/30/17 09/29/17 History Carbidopa/Levodopa 25-100 [Sinemet] 1 each PO BID 09/30/17 09/30/17 09/29/17 History Ergocalciferol [Vitamin D2] 1 cap PO QWEEK 09/30/17 09/30/17 09/29/17 History Finasteride [Proscar] 5 mg PO QDAY 09/30/17 09/30/17 09/29/17 History Memantine [Namenda] 5 mg PO BID 09/30/17 09/30/17 09/29/17 History Pravastatin Sodium [Pravachol] 20 mg PO DAILY 09/30/17 09/30/17 09/29/17 History Sertraline [Zoloft] 25 mg PO QDAY 09/30/17 09/30/17 09/29/17 History Active Meds: Active Medications Acetaminophen (Tylenol) 650 mg PO Q4H PRN PRN Reason: Pain MILD(1-3)/Fever >100.5/THACKER Amlodipine Besylate (Norvasc) 5 mg PO DAILY [facility] Last Admin: 09/30/17 18:27 Dose: 5 mg Aspirin (Halfprin Ec) 81 mg PO DAILY [facility] Bisacodyl (Dulcolax) 10 mg [place] QDAY PRN PRN Reason: Constipation unrelieved by MOM Carbidopa/Levodopa (Sinemet) 1 each PO BID [facility] Last Admin: 09/30/17 23:11 Dose: 1 each Clonazepam (Klonopin) 0.5 mg PO BID PRN PRN Reason: Anxiety Clopidogrel Bisulfate (Plavix) 75 mg PO DAILY [facility] Famotidine (Pepcid) 20 mg PO QHS [facility] Last Admin: 09/30/17 23:11 Dose: 20 mg Fenofibrate (Tricor) 145 mg PO DAILY [facility] Finasteride (Proscar) 5 mg PO QDAY [facility] Heparin Sodium (Porcine) (Heparin) 5,000 unit SUB-Q Q12HR [facility] Last Admin: 09/30/17 23:11 Dose: 5,000 unit Influenza Virus Vaccine Quadrival (Fluarix Quad [id number](36 Mos+) 0.5 ml IM .ONCE ONE Stop: 10/01/17 12:35 Isosorbide Mononitrate (Imdur) 30 mg PO QDAY [facility] Magnesium Hydroxide (Milk Of Magnesia) 30 ml PO Q4H PRN PRN Reason: Constipation Memantine (Namenda) 5 mg PO BID [facility] Last Admin: 09/30/17 23:11 Dose: 5 mg Morphine Sulfate (Morphine) 6 mg IV ONCE PRN PRN Reason: Pain Morphine Sulfate (Morphine) 2 mg IV Q4H PRN PRN Reason: Pain, Moderate (4-6) Ondansetron HCl (Zofran) 8 mg IV ONCE PRN PRN Reason: Nausea Ondansetron HCl (Zofran) 4 mg IV Q6H PRN PRN Reason: nausea or vomiting Last Admin: 10/01/17 07:02 Dose: 4 mg Pantoprazole Sodium (Protonix) 40 mg PO QDAY [facility] Pravastatin Sodium (Pravachol) 20 mg PO QHS [facility] Last Admin: 09/30/17 23:12 Dose: 20 mg Sertraline HCl (Zoloft) 25 mg PO QDAY [facility] Review of Systems Constitutional: chills, sweats, no weight loss, no weight gain, no fever, no night sweats Ears, nose, mouth and throat: no ear pain, no nose pain, no sinus pressure, no sinus pain Cardiovascular: chest pain, no orthopnea, no palpitations, no rapid/irregular heart beat, no edema, no syncope, no lightheadedness, no shortness of breath, no dyspnea on exertion, no high blood pressure, no leg edema, no decreased exercise tolerance Respiratory: no cough, no shortness of breath, no dyspnea on exertion, no congestion, no wheezing, no pain on inspiration Gastrointestinal: no abdominal pain, no nausea, no vomiting, no diarrhea, no constipation Genitourinary Male: no dysuria, no hematuria, no flank pain, no discharge, no urinary frequency, no urinary hesitancy Musculoskeletal: no neck stiffness, no neck pain, no shooting arm pain, no arm numbness/tingling, no low back pain, no shooting leg pain, no leg numbness/ tingling, no redness of joints Integumentary: no rash, no pruritis, no redness, no sores, no wounds Neurological: no head injury, no paralysis, no weakness, no parathesias, no numbness, no tingling, no seizures, no syncope Hematologic/Lymphatic: no easy bruising, no easy bleeding, no lymphadenopathy Allergic/Immunologic: no urticaria, no wheezing, no persistent infections Physical Examination Vital Signs Temp Pulse Resp BP Pulse Ox 97.4 F L 52 L 20 190/90 99 09/30/17 08:34 09/30/17 08:34 09/30/17 08:34 09/30/17 08:34 09/30/17 08:34 General appearance: no acute distress HEENT: Positive: PERRL, Normocephaly, Mucus Membranes Moist Neck: Positive: neck supple, trachea midline Cardiac: Positive: Reg Rate and Rhythm, S1/S2 Lungs: Positive: clear to auscultation Neuro: Positive: Grossly Intact, Cranial Nerve 2-12 Intact Abdomen: Positive: Unremarkable, Soft, Active Bowel Sounds. Negative: Tender Skin: Positive: Clear. Negative: Rash, Wound Musculoskeletal: No Fluid Collection, No Pain, Normal Range of Motion Extremities: Absent: edema Results 10/01/17 05:34 10/01/17 05:34 CBC 09/30/17 10/01/17 Range/Units 08:56 05:34 WBC 10.0 8.3 (4.5-11.0) K/mm3 RBC 4.99 4.23 (3.65-5.03) M/mm3 Hgb 15.6 H 13.3 (11.8-15.2) gm/dl Hct 46.4 H 39.2 D (35.5-45.6) % Plt Count 168 212 (140-440) K/mm3 Lymph # 1.4 (1.2-5.4) K/mm3 Emanuel # 0.8 (0.0-0.8) K/mm3 Eos # 0.1 (0.0-0.4) K/mm3 Baso # 0.1 (0.0-0.1) K/mm3 Comprehensive Metabolic Panel 10/01/17 Range/Units 05:34 Sodium 141 (137-145) mmol/L Potassium 3.9 (3.6-5.0) mmol/L Chloride 103.8 (98-107) mmol/L Carbon Dioxide 22 (22-30) mmol/L BUN 33 H (9-20) mg/dL Creatinine 1.5 (0.8-1.5) mg/dL Glucose 91 (75-100) mg/dL Calcium 9.1 (8.4-10.2) mg/dL - Imaging and Cardiology Echo: report reviewed (03/2016 showed EF 40 - 45%, impaired relaxation, moderate MR) EKG: report reviewed, image reviewed EKG interpretations - Telemetry EKG Rhythm: Sinus Rhythm - EKG Sinus rhythms and dysrhythmias: sinus rhythm Assessment and Plan ECG with NAF. Marciano negative for AMI. V/q scan low probability for PE. Chest pain currently resolved. Currently stable cardiac status. Initiate Imdur. Pending pt remains chest pain free, pt may discharge home this afternoon from cardiology standpoint. Follow up in our [place] office with Dr. Ocasio on 10/07/2017 @ 3:15PM. The patient has been seen in conjunction with Dr. Ac who agrees with the assessment and plan of care. - Patient Problems (1) Chest pain, atypical Current Visit: Yes Status: Resolved (2) CAD (coronary artery disease) Current Visit: Yes Status: Chronic (3) Hx of CABG Current Visit: Yes Status: Chronic (4) HTN (hypertension) Current Visit: Yes Status: Chronic (5) Parkinson disease Current Visit: Yes Status: Chronic (6) Dementia Current Visit: Yes Status: Chronic
[2017-10-01] MEDS: NORVASC PO SCH (10:56)
[2017-10-01] MEDS: SINEMET PO SCH (10:56)
[2017-10-01] MEDS: HEPARIN SUB-Q SCH (10:58)
[2017-10-01] MEDS: NAMENDA PO SCH (12:16)
[2017-10-01] MEDS ORDERED: Fluarix Quad 2017-2018(36 MOS+ IM ONE (12:34)
--- NOTE | 2017-10-01 12:53 | Discharge Summary ---
Providers - Providers Date of Admission: 09/30/17 21:48 Date of discharge: 10/01/17 Attending physician: LIZZIE GOTTI MD 09/30/17 21:48 Consult to Physician [CONS] Routine Consulting Provider: JULIO CESAR HEDRICK Reason For Exam: shortness of breath, CAD Place consult to:: [facility] Notified:: y Comment:: added to list Primary care physician: HEPATOLOGIST Hospitalization Reason for admission: chest pain, CAD Condition: Fair Pertinent studies: VQ scan low priority for PE. Hospital course: Patient is 76 yo with hypertension, CAD, s/p CABG, dementia. He has dementia and cannot give much of a detailed history . he presented with chest pain and shortness of breath. Chest pain is midsternal , 7/10. no radiation, not worse on exertion. Shortness of breath is present at rest, worse on exertion. He denies any nausea or vomiting or fever. In Emergency Departnment troponin level was normal. Patient will be admitted to rule out acute coronary syndrome and pulmonary embolism. Patient was admitted to the floor and cardiac enzymes were negative, VQ scan shows low probability for PE. Cardiology was consulted and he has been well known to them, he followed in the office and had recent cardiac workup which was negative. Cardiology recommended to discharge the patient and follow him with Dr. Hedrick on 10/07/17. Patient's chest pain subsided, patient was hemodynamically stable with no discharge. Patient's questions and concerns were addressed at the bedside. Patient was discharged home in a stable condition. Disposition: - TO HOME OR SELFCARE Time spent for discharge: 31 minutes - Discharge Diagnoses (1) Chest tightness Status: Acute (2) Dry throat Status: Acute (3) CAD (coronary artery disease) Status: Chronic (4) HTN (hypertension) Status: Chronic (5) Hx of CABG Status: Chronic (6) Chest pain, atypical Status: Resolved Core Measure Documentation - Palliative Care Palliative Care/ Comfort Measures: Not Applicable - Core Measures Any of the following diagnoses?: none Exam - Physical Exam Narrative exam: Not in cardiopulmonary distress. The patient appeared well nourished and normally developed. Vital signs as documented. Head exam is unremarkable. No scleral icterus . Neck is without jugular venous distension, thyromegaly, or carotid bruits. Lungs are clear to auscultation. Cardiac exam reveals regular rate and Rhythm. First and second heart sounds normal. No murmurs, rubs or gallops. Abdominal exam reveals normal bowel sounds, no masses, no organomegaly and no aortic enlargement. Extremities are nonedematous and both femoral and pedal pulses are normal. [employer]: Alert and oriented 3. No focal weakness. - Constitutional Vitals: Temp Pulse Resp BP Pulse Ox 97.6 F 54 L 17 172/76 100 10/01/17 08:10 10/01/17 10:57 10/01/17 08:10 10/01/17 10:57 10/01/17 08:10 Plan Activity: no restrictions Weight Bearing Status: Full Weight Bearing Diet: low cholesterol, low salt Follow up with: PRIMARY CAREMD [Primary Care Provider] - 3-5 Days JULIO CESAR HEDRICK MD [Staff Physician] - 10/07/17
[2017-10-01 14:17] VITALS: BP 83/42
[2017-10-01] MEDS ORDERED: NACL 0.9% 500 ML 500 ML IV ONE (15:00)
--- NOTE | 2017-10-05 12:45 | Query- Chest Pain ---
Nathan Berman Shashi Date: 10/05/17 Linen Room Houseperson/CDS:____Adeline / [place] Phone#:___[phone] Exercise your independent professional judgment when responding to query. Questions asked do not imply a particular answer is desired or expected. We greatly appreciate your clarification on this issue. Clinical Documentation States: 76 year old male was admitted on 09/30/17 The discharge summary (Dr. Danielle) states " Reason for admission: chest pain, CAD Patient is 76 yo with hypertension, CAD, s/p CABG, dementia. Patient was admitted to the floor and cardiac enzymes were negative, VQ scan shows low probability for PE " - Discharge Diagnoses (1) Chest tightness (3) CAD (coronary artery disease) (6) Chest pain, atypical " Please document the etiology of Chest Pain: [ ] Myocardial Infarction [ ] Pneumonia [ ] Mediastinitis [ ] Costochondritis [ ] Pulmonary Embolism [ x] Coronary Artery Disease [ ] GERD [ ] Other: [ ] Comment/Explanation: Present on Admission: [x ] Yes (Y) [ ] Clinically undeterminable (W) [ ] No(N) Please document response in your Progress Notes and/or Discharge Summary and indicate if the condition was present on admission. MELINA
== END 2017-10-01 15:46 | disposition home or self-care (01) | DRG 303 ==
LOC: ED 08:15 → 4A 21:48
PROVIDERS: ADMIT Internal Medicine; ATTEND Internal Medicine
DX: I25.10 Atherosclerotic heart disease of native coronary artery without angina pectoris (principal); N17.9 Acute kidney failure, unspecified; I10 Essential (primary) hypertension; K21.9 Gastro-esophageal reflux disease without esophagitis; J39.2 Other diseases of pharynx; F03.90 Unspecified dementia, unspecified severity, without behavioral disturbance, psychotic disturbance, mood disturbance, and anxiety; E78.5 Hyperlipidemia, unspecified; G20 Parkinson's disease; F41.9 Anxiety disorder, unspecified; Z95.1 Presence of aortocoronary bypass graft; I25.2 Old myocardial infarction
CPT/HCPCS: 36415; 70360; 71010; 71020; 78582; 80048; 81001; 82140; 83880; 84484; 85007; 85025; 85379; 85610; 85730; 87086; 90686; 93005; 93010; A9270-GY; A9540; A9558; J1644; J2405; J7040